=== PATIENT | male | born 1940 | race Caucasian/White ===

== ENCOUNTER 2024-03-06 16:58 | Emergency (ER) | payer MEDICARE ==
[~2024-03-06] VITALS: Ht 167.6 cm; Wt 68.0 kg
[2024-03-06 17:01] VITALS: O2SAT 98
[2024-03-06] MEDS ORDERED: PIPERACILLIN/TAZO 3.375G/50ML 50 ML IV ONE (17:45)
[2024-03-06] MEDS: SODIUM CHLORIDE 0.9% (SEPSIS BOLUS) IV ONE (18:38)
[2024-03-06] MEDS: VANCOMYCIN 1G PREMIX 200 ML IV ONE (18:42)
[2024-03-06] MEDS: PIPERACILLIN/TAZO 3.375G/100ML 100 ML IV NR (19:21)
[2024-03-06] MEDS: SODIUM CHLORIDE 0.9% 1,000 ML IV ONE (20:58)
[2024-03-06 21:01] LABS: MEAN CORPUSCULAR HEMOGLOBIN 22.2 pg (28.0-32.0); MEAN CORPUSCULAR HGB CONC 28.3 g/dL (31.0-37.0); MEAN CORPUSCULAR VOLUME 78.5 fL (80.0-94.0); MEAN PLATELET VOLUME 7.9 fl (7.4-10.4); PLATELET 375 x1000/uL (130-400); RED BLOOD CELL COUNT 2.05 mill/uL (4.7-6.1); WHITE BLOOD COUNT 14.2 x1000/uL (4.5-11.0)
[2024-03-06 21:05] LABS: DIFFERENTIAL COMMENT 1
[2024-03-06 21:09] LABS: CARBON DIOXIDE 20 mEq/L (21-32); CHLORIDE 109 mEq/L (98-107); POTASSIUM 3.7 mEq/L (3.5-5.1); SODIUM 140 mEq/L (136-145)
[2024-03-06 21:10] LABS: CALCIUM 7.1 mg/dL (8.7-10.4)
[2024-03-06 21:14] LABS: GLUCOSE 313 mg/dL (70-105); HEMATOCRIT. 16.1 % (42.0-52.0); HEMOGLOBIN. 4.6 g/dL (14.0-18.0)
[2024-03-06 21:15] LABS: TROPONIN I HIGH SENSITIVITY 28 ng/L (3.0-53); UREA NITROGEN BLOOD 19 mg/dL (9-23)
[2024-03-06 21:16] LABS: ALANINE AMINOTRANSFERASE < 7 IU/L (10-49); ALBUMIN 2.1 g/dL (3.2-4.8); ASPARTATE AMINOTRANSFERASE 9 IU/L (<34)
[2024-03-06 21:17] LABS: BILIRUBIN DIRECT 0.1 mg/dL (<=3.0); BILIRUBIN TOTAL 0.3 mg/dL (0.1-1.0); PROTEIN TOTAL 3.9 g/dL (6.0-8.3)
[2024-03-06 21:25] LABS: INR 1.1; PROTHROMBIN TIME 12.4 sec (9.6-11.0)
[2024-03-06 21:42] LABS: LACTIC ACID 6.3 mmol/L (0.4-2.0)
[2024-03-06 21:45] LABS: HYPOCHROMASIA 1+; MICROCYTOSIS 2+; PLATELET ESTIMATE SLIGHTLY INCREASED
[2024-03-07 00:36] LABS: CLARITY URINE CLEAR (CLEAR); COLOR URINE YELLOW (YELLOW); GLUCOSE URINE NEGATIVE (NEGATIVE); KETONES URINE NEGATIVE (NEGATIVE); LEUKOCYTE ESTERASE URINE NEGATIVE (NEGATIVE); NITRITE URINE NEGATIVE (NEGATIVE); OCCULT BLOOD URINE NEGATIVE (NEGATIVE); PROTEIN URINE TRACE (NEGATIVE); UROBILINOGEN URINE 0.2 E.U./dL (0.2-1.0)
[2024-03-07 00:51] LABS: BACTERIA URINE NONE SEEN; RBC URINE NONE SEEN /hpf (0-2); SQUAMOUS EPITHELIAL CELL URINE NONE SEEN /lpf (RARE/1+); WBC URINE NONE SEEN /hpf (0-2)
[2024-03-07 01:12] VITALS: TEMP 36.78072
[2024-03-07 03:21] VITALS: BP 165/108; PULSE 58; RESP 17
== END 2024-03-07 05:20 ==
LOC: ER 16:58
DX: R55 Syncope and collapse (principal); A41.9 Sepsis, unspecified organism; Z55.6 Problems related to health literacy
CPT/HCPCS: 99291; 31500; 96365; 71045; 96361; 80076; 80048; 83880; 83605 ×2; 83690; 85025; 85610; 86850; 86900; 86901; 86920; 87040; 84484; 36415; 84145; 93005; 96368; 81003; 87086; J2543; J3370; J7030; 36430; P9016